=== PATIENT | female | born 1930 | race Caucasian/White ===

== ENCOUNTER 2016-12-14 08:41 | Inpatient (IN) | payer MEDICARE, OTHER ==
[2016-12-14 09:15] LABS: BASOPHILS 0.2 % (0.0-2.0); EOSINOPHILS 1.4 % (0.0-6.0); EOSINOPHILS# 0.1 X 10^3uL (0.0-0.4); HEMATOCRIT 43.8 % (36.0-48.0); HEMOGLOBIN 14.6 g/dL (12.0-16.0); LYMPHOCYTES 12.5 % (20.0-40.0); LYMPHOCYTES# 0.9 X 10^3uL (0.8-3.8); MEAN CELL VOLUME 91.9 fL (80.0-100.0); MEAN CORPUS. HGB CONCENTRATION 33.3 g/dL (32.0-36.0); MEAN CORPUSCULAR HEMOGLOBIN 30.6 pg (29.0-35.0); MEAN PLATELET VOLUME 8.8 fL (7.4-10.4); MONOCYTES 7.6 % (2.0-10.0); MONOCYTES# 0.5 X 10^3uL (0.2-1.0); NEUTROPHILS 78.3 % (54.0-75.0); NEUTROPHILS# 5.6 X 10^3uL (2.6-6.7); PLATELET COUNT 233 X 10^3uL (130-440); RED BLOOD COUNT 4.77 X 10^6uL (4.20-6.10); RED CELL DISTRIBUTION WIDTH 14.2 % (11.5-14.5); WHITE BLOOD COUNT 7.1 X 10^3uL (3.9-10.7)
[2016-12-14 09:24] LABS: A/G RATIO 1.5; ALBUMIN 4.2 g/dL (3.5-5.0); ALKALINE PHOSPHATASE 167 U/L (38-126); ALT 84 U/L (9-52); AST 59 U/L (14-36); BILIRUBIN, TOTAL 1.3 mg/dL (0.2-1.3); BLOOD UREA NITROGEN 20 mg/dL (7-17); CALCIUM 9.3 mg/dL (8.4-10.2); CHLORIDE 102 mmol/L (98-107); GLUCOSE 112 mg/dL (70-100); MAGNESIUM 2.2 mg/dL (1.6-2.3); POTASSIUM 4.1 mmol/L (3.5-5.1); SODIUM 143 mmol/L (137-145)
[2016-12-14 09:36] LABS: TROPONIN I < 0.012 ng/mL (0.00-0.034)
[2016-12-14] MEDS ORDERED: HOME MEDICATION LIST NEEDED 1 EA EACH MC ONE (10:31)
[2016-12-14] MEDS ORDERED: IPRATROPIUM/ALBUTEROL 0.5/3 MG 3 ML AMPUL.NEB IH PRN (10:31)
[2016-12-14] MEDS ORDERED: DILTIAZEM HCL 125 MG/25 ML VIAL IV ONE (10:35)
[2016-12-14] MEDS ORDERED: FUROSEMIDE 20 MG/2 ML VIAL ONE (10:36)
[2016-12-14] MEDS ORDERED: AZITHROMYCIN 250 MG TABLET PO ONE (10:36)
[2016-12-14] MEDS ORDERED: IPRATROPIUM/ALBUTEROL 0.5/3 MG 3 ML AMPUL.NEB INHALATION ONE (10:36)
[2016-12-14] MEDS ORDERED: cefTRIAXone SODIUM 1,000 MG/10 ML VIAL ONE (10:36)
[2016-12-14] MEDS ORDERED: NORMAL SALINE MINI-BAG+ 100 ML IV ONE (10:37)
[2016-12-14] MEDS ORDERED: NORMAL SALINE 1,000 ML IV ONE (10:41)
[2016-12-14] MEDS ORDERED: NORMAL SALINE MINI IV SCH (11:00)
[2016-12-14] MEDS ORDERED: CEFTRIAXONE SODIUM IV SCH (11:00)
--- NOTE | 2016-12-14 11:37 | ER NURSING DOCUMENTATION ---
Nurse's Notes [facility] Name:Jeana Taylor Age:86 yrs Sex:Female :1930 Arrival Date:12/14/2016 Time:08:41 Bed3 Private MD:No PCP, Identified Diagnosis:Pneumonia, Unspecified Presentation: 12/14 08:58 Presenting complaint: Patient states: SOB and confusion. Transition of care: Home. lp Notified ED Physician of Dr. Arriaga notified. 08:58 Acuity: MITALI 3 lp 08:58 Method Of Arrival: Private Vehicle lp 09:00 Acuity: MITALI 2 lp Triage Assessment: 09:05 General: Appears in no apparent distress, Behavior is appropriate for age. Pain: Denies lp pain. EENT: No deficits noted. Neuro: Level of Consciousness is awake, alert, confused, Oriented to person, place, event. Cardiovascular: Capillary refill < 3 seconds Heart tones S1 S2 Pulses are all present. Rhythm is atrial fibrillation. Respiratory: Airway is patent Trachea midline Respiratory effort is labored, Respiratory pattern is regular, symmetrical, Historical: - Allergies: Naproxen; PENICILLINS; Lortab; - Home Meds: 1. Pradaxa 75 mg oral cap 1 cap Daily for Prevention of Thromboembolism with Chronic Atrial Fibrillation 2. Cardizem 30 mg oral tab 1 tab 4 times per day 3. levothyroxine 112 mcg oral cap 1 cap once daily for Hypothyroidism 4. tesslon 5. hydrochlorothiazide 12.5 mg oral cap 1 cap once daily - PSHx: Hysterectomy; HERNIA REPAIR; Appendectomy; Knee surgery; - Tetanus: < 10 years. - Ebola Screening: : Patient negative for fever greater than or equal to 101.5 degrees Fahrenheit, and additional compatible Ebola Virus Disease symptoms. Patient denies exposure to infectious person. Patient denies travel to an Ebola-affected area in the 21 days before illness onset. . - Immunization history: Pneumococcal vaccine is up to date, Flu Vaccine < 1 year. - Social history: Smoking status: Patient states former smoker of tobacco. Screenin:09 Infectious Disease Risk None. Abuse screen: Denies threats or abuse. Denies injuries lp from another. Nutritional screening: No deficits noted. Assessment: 09:13 Cardiovascular: Capillary refill < 3 seconds Heart tones S1 S2 Rhythm is irregular. lp Respiratory: Breath sounds are clear in right upper lobe, left upper lobe, left posterior upper lobe and right posterior upper lobe Breath sounds are diminished in left lower lobe, right lower lobe, left posterior lower lobe and right posterior lower lobe. Vital Signs: 08:59 Pulse 115 MON; Resp 29; Pulse Ox 88% ; lp 09:00 BP 165 / 109; Pulse 125; Resp 20; Temp 98.0(TE); Pulse Ox 79% on R/A; Weight 55.34 kg; lp Height 5 ft. 0 in. (152.40 cm); Pain 0/10; 09:00 BP 139 / 110 (auto/); lp 09:19 BP 136 / 110 (auto/); lp 09:19 Pulse 119 MON; Resp 32; Pulse Ox 94% ; lp 09:30 BP 150 / 115 (auto/); lp 09:34 Pulse 105 MON; Resp 19; Pulse Ox 100% ; lp 09:59 Pulse 124 MON; Resp 24; lp 10:00 BP 142 / 102 (auto/); lp 10:29 Pulse 126 MON; Resp 23; Pulse Ox 94% ; lp 10:30 BP 154 / 104 (auto/); lp 10:54 Pulse 122 MON; Resp 38; Pulse Ox 92% ; lp 10:55 BP 129 / 87 (auto/); lp 09:00 Body Mass Index 23.83 (55.34 kg, 152.40 cm) lp ED Course: 08:45 Patient arrived in ED. ds 08:46 No PCP, Identified is Private Physician. ds 08:54 Larry Arriaga MD is Attending Physician. tl1 08:58 Karo Jaquez, FRANCISCO is Primary Nurse. lp 09:00 Triage completed. lp 09:07 EKG done. (by ED staff). la 09:[address] Arriaga notified. lp 09:09 Valuables Remains with patient Patient has correct armband on for positive lp identification. Placed in gown. Bed in low position. Call light in reach. Side rails up X 1. Cardiac Monitoring On for Nurse Monitoring only. Pulse Ox - RN Monitoring Only NIBP On - RN Monitoring Only. 09:10 Patient moved to radiology. pam 09:12 Inserted saline lock: 20 gauge in left antecubital area and blood collected. la 09:21 Patient moved back from radiology. pam 10:16 Bryan Garcia MD is Admitting Physician. tl1 10:19 EKG attached lp Administered Medications: 10:28 Drug: Lasix 20 mg; Route: IVP; Infused Over: 3 mins; Site: left antecubital; lp 10:46 Follow up: Response: No adverse reaction; No change in condition lp 10:30 Drug: Zithromax 500 mg; Route: PO; lp 10:46 Follow up: Response: No adverse reaction; No change in condition lp 10:35 Drug: Cardizem 10 mg; Route: IVP; Site: left antecubital; lp 10:45 Follow up: Response: No adverse reaction; Cardiac rhythm is unchanged lp 10:41 Drug: DuoNeb (Albuterol 2.5 mg, Atrovent 0.5 mg); 3 ml; Route: Nebulizer; lp 10:47 Follow up: Response: No adverse reaction; Wheezing diminished lp 10:41 Drug: cefTRIAXone 1 grams, NS 0.9% 100 ml; Route: IVPB; Infused Over: 30 mins; Site: lp left antecubital; 10:46 Follow up: IV Status: Infusion continued upon admission lp 10:43 Drug: NS 0.9% 1000 ml; Route: IV; Rate: 30 ml/hr; Site: left antecubital; lp 10:47 Follow up: Response: Medication administered at discharge.; IV Status: Infusion lp continued upon admission Output: 11:03 Urine: 200ml (Voided); Total: 200ml. lp Outcome: 10:18 Decision to Admit by Provider. tl1 11:36 Admitted to Med/surg accompanied by nurse. lp 11:36 Report given to Anant SINGH on Med- Surg 11:36 Instructed on discharge instructions, follow up and referral plans. need to admit 11:37 Condition: stable lp 11:37 Patient left the ED. lp Signatures: Karo Jaquez RN RN lp ot, Georgette, Reg Reg ds Sho, Autumn Stephenson, Larry Dickinson MD MD tl1
--- NOTE | 2016-12-14 11:37 | ER PHYSICIAN DOCUMENTATION ---
Physician Documentation [facility] Name:Jeana Taylor Age:86 yrs Sex:Female :1930 Arrival Date:12/14/2016 Time:08:41 Bed3 Private MD:No PCP, Identified ED Larry Casiano Disposition: 12/14 12:00 Chart complete. tl1 Disposition: 12/14/16 10:18 Admit ordered for Bryan Garcia. Preliminary diagnosis is Pneumonia, Unspecified. - Bed requested for Medical/Surgical. - Condition is Improved. - Problem is new. - Symptoms have improved. 23 HR OBS Yes HPI: 08:54 This 86 yrs old Female presents to ER with complaints of Cough. tl1 08:55 She was well until 2 days ago when she developed a mild cough that is now worse, and tl1 increasingly productive. She denies f/c/s. No chest pain or hemoptysis.. She has a h/o atrial fibrillation and is on pradaxa for that. She forgot her inhaler, which she takes for COPD, and her HCTZ. She had not checked her weight. Her chronic LE edema may be a little worse.. Historical: - Allergies: Naproxen; PENICILLINS; Lortab; - Home Meds: 1. Pradaxa 75 mg oral cap 1 cap Daily for Prevention of Thromboembolism with Chronic Atrial Fibrillation 2. Cardizem 30 mg oral tab 1 tab 4 times per day 3. levothyroxine 112 mcg oral cap 1 cap once daily for Hypothyroidism 4. tesslon 5. hydrochlorothiazide 12.5 mg oral cap 1 cap once daily - PSHx: Hysterectomy; HERNIA REPAIR; Appendectomy; Knee surgery; - Tetanus: < 10 years. - Ebola Screening: : Patient negative for fever greater than or equal to 101.5 degrees Fahrenheit, and additional compatible Ebola Virus Disease symptoms. Patient denies exposure to infectious person. Patient denies travel to an Ebola-affected area in the 21 days before illness onset. . - Immunization history: Pneumococcal vaccine is up to date, Flu Vaccine < 1 year. - Social history: Smoking status: Patient states former smoker of tobacco. ROS: 09:42 Respiratory: Positive for cough, dyspnea on exertion, shortness of breath, Negative for tl1 pleurisy, wheezing. 09:42 All other systems are negative. Exam: 09:43 Constitutional: This is a well developed, well nourished patient who is awake, alert, tl1 and in no acute distress. Head/Face: Normocephalic, atraumatic. Eyes: Pupils equal round and reactive to light, extra-ocular motions intact. Lids and lashes normal. Conjunctiva and sclera are non-icteric and not injected. Cornea within normal limits. Periorbital areas with no swelling, redness, or edema. ENT: Nares patent. No nasal discharge, no septal abnormalities noted. Tympanic membranes are normal and external auditory canals are clear. Oropharynx with no redness, swelling, or masses, exudates, or evidence of obstruction, uvula midline. Mucous membranes moist. Neck: Trachea midline, no thyromegaly or masses palpated, and no cervical lymphadenopathy. Supple, full range of motion without nuchal rigidity, or vertebral point tenderness. No Meningismus. 09:43 Cardiovascular: Regular rate and rhythm with a normal S1 and S2. No gallops, murmurs, tl1 or rubs. Normal PMI, no JVD. No pulse deficits. 09:43 Respiratory: the patient does not display signs of respiratory distress, Respirations: labored breathing, that is mild, hyperpnea, Breath sounds: rales, are not appreciated, rhonchi, are not appreciated, wheezing, is not appreciated, bronchial sounds, are not appreciated, decreased breath sounds, that are moderate. Vital Signs: 08:59 Pulse 115 MON; Resp 29; Pulse Ox 88% ; lp 09:00 BP 165 / 109; Pulse 125; Resp 20; Temp 98.0(TE); Pulse Ox 79% on R/A; Weight 55.34 kg; lp Height 5 ft. 0 in. (152.40 cm); Pain 0/10; 09:00 BP 139 / 110 (auto/); lp 09:19 BP 136 / 110 (auto/); lp 09:19 Pulse 119 MON; Resp 32; Pulse Ox 94% ; lp 09:30 BP 150 / 115 (auto/); lp 09:34 Pulse 105 MON; Resp 19; Pulse Ox 100% ; lp 09:59 Pulse 124 MON; Resp 24; lp 10:00 BP 142 / 102 (auto/); lp 10:29 Pulse 126 MON; Resp 23; Pulse Ox 94% ; lp 10:30 BP 154 / 104 (auto/); lp 10:54 Pulse 122 MON; Resp 38; Pulse Ox 92% ; lp 10:55 BP 129 / 87 (auto/); lp 09:00 Body Mass Index 23.83 (55.34 kg, 152.40 cm) lp MDM: 08:54 Patient medically screened. tl1 09:44 Differential Diagnosis: Bronchitis Influenza Upper Respiratory Infection Viral Syndrome tl1 Pneumonia Other CHF. Doubt PE since she is anticoagulated. Atrial fibrillation is probably making this worse. Data reviewed: vital signs, nurses notes, lab test result(s), CBC, electrolytes, hepatic panel, EKG, radiologic studies, plain films, and as a result, I will admit patient. Counseling: I had a detailed discussion with the patient and/or guardian regarding: the historical points, exam findings, and any diagnostic results supporting the discharge/admit diagnosis, lab results, radiology results, the need for further work-up and treatment in the hospital. 09:48 ECG:. tl1 10:00 Physician consultation: Bryan Garcia MD was called at 10:00, was contacted at 10:00, tl1 regarding admission, to the floor, patient's condition, and will see patient later today. Admission orders: after a detailed discussion of the patient's condition and case, the admit orders are written by me. ED course: O2 was provided immediately. There was a mild decrease in her heart rate with diltiazem 10 mg IVP TO around 100. She was given ceftriaxone and azithromycin, along with a duoneb and 20 mg of IV lasix. She was feeling somewhat better.. 10:19 EKG attached lp 12/14 09:20 Order name: CBC AUTO DIF, MDIF/RMOR IF IND; Complete Time: 09:53 EDMS 12/14 09:52 Interpretation: WHITE BLOOD COUNT 7.1; HEMOGLOBIN 14.6; HEMATOCRIT 43.8; PLATELET COUNT tl1 233; NEUTROPHILS 78.3. 12/14 09:37 Order name: COMPREHENSIVE METABOLIC PANEL; Complete Time: 09:53 EDMS 12/14 09:52 Interpretation: SODIUM 143; POTASSIUM 4.1; CARBON DIOXIDE 25; GLUCOSE 112; BLOOD UREA tl1 NITROGEN 20; CREATININE 0.8; ALT 84; AST 59. 12/14 09:37 Order name: MAGNESIUM; Complete Time: 09:53 EDMS 06/07 09:52 Interpretation: Normal: MAGNESIUM 2.2. tl1 12/14 09:37 Order name: BNP,NT-PRO; Complete Time: 09:53 EDMS 12/14 09:52 Interpretation: Abnormal: BNP,NT-PRO 3480. tl1 12/14 09:37 Order name: TROPONIN I; Complete Time: 09:53 EDMS 07 09:53 Interpretation: Normal: TROPONIN I < 0.012. tl1 12/15 06:06 Order name: BASIC METABOLIC PANEL EDMS 12/15 06:07 Order name: CBC AUTO DIF, MDIF/RMOR IF IND EDMS 12/15 09:11 Order name: HEPATIC PANEL EDMS 12/15 09:11 Order name: THYROID STIMULATING HORMONE EDMS 12/14 12:42 Order name: CXR 2V 16965; Complete Time: 13:57 EDMS 12/14 13:56 Interpretation: Bibasilar infiltrates with bilateral pleural effusion and some tl1 increased pulmonary vascularity. 12/14 09:00 Order name: EKG - 12 Lead; Complete Time: 09:12 tl1 EC: Rate is 148 beats/min. Rhythm is irregularly irregular, A fib. QRS Leopold is Normal. QRS tl1 interval is normal at 70 msec. QT interval is normal at 348 msec. Q waves are Present in leads V1, V2, V3. T waves are Normal. No ST changes noted. Clinical impression: Atrial Fibrillation and with RVR and an old AWMI. Interpreted by me. Reviewed by me. Dispensed Medications: 10:28 Drug: Lasix 20 mg; Route: IVP; Infused Over: 3 mins; Site: left antecubital; lp 10:46 Follow up: Response: No adverse reaction; No change in condition lp 10:30 Drug: Zithromax 500 mg; Route: PO; lp 10:46 Follow up: Response: No adverse reaction; No change in condition lp 10:35 Drug: Cardizem 10 mg; Route: IVP; Site: left antecubital; lp 10:45 Follow up: Response: No adverse reaction; Cardiac rhythm is unchanged lp 10:41 Drug: DuoNeb (Albuterol 2.5 mg, Atrovent 0.5 mg); 3 ml; Route: Nebulizer; lp 10:47 Follow up: Response: No adverse reaction; Wheezing diminished lp 10:41 Drug: cefTRIAXone 1 grams, NS 0.9% 100 ml; Route: IVPB; Infused Over: 30 mins; Site: lp left antecubital; 10:46 Follow up: IV Status: Infusion continued upon admission lp 10:43 Drug: NS 0.9% 1000 ml; Route: IV; Rate: 30 ml/hr; Site: left antecubital; lp 10:47 Follow up: Response: Medication administered at discharge.; IV Status: Infusion lp continued upon admission Signatures: Karo Jaquez RN RN Larry Arriaga MD MD tl1
--- NOTE | 2016-12-14 12:26 | RADIOLOGY REPORT ---
Two views of the chest, without prior films for comparison, demonstrate the cardiac silhouette to be enlarged. The central pulmonary vasculature is indistinct. A moderate amount of bilateral pleural fluid is noted. Bibasilar infiltrates are seen. The mid and upper lung arguelles are clear. IMPRESSION: 1. Findings consistent with a degree of congestive failure. 2. Bibasilar infiltrates. The findings were personally reviewed with Dr. Arriaga at 1000 hours on 12/14/2016. [facility]
[2016-12-14] MEDS ORDERED: DILTIAZEM HCL 30 MG TABLET PO ONE (12:36)
[2016-12-14] MEDS ORDERED: DILTIAZEM HCL 30 MG TABLET PO SCH (13:00)
[2016-12-14] MEDS: DILTIAZEM HCL CD 120 MG CAPSULE PO SCH (15:18)
[2016-12-14] MEDS ORDERED: SODIUM CHLORIDE IRRIG IRRIGATION ONE (16:17)
[2016-12-14] MEDS ORDERED: traMADol HCL 50 MG TABLET PO PRN (17:00)
[2016-12-14] MEDS ORDERED: IPRATROPIUM BROMIDE 0.5 MG/2.5 ML NEB INHALATION PRN (18:58)
[2016-12-14] MEDS: DABIGATRAN 75 MG CAPSULE PO SCH (21:08)
[2016-12-14] MEDS: BUDESONIDE 0.5 MG/2 ML NEB INHALATION SCH (21:09)
[2016-12-14] MEDS: BENZONATATE 100 MG CAPSULE PO SCH (21:10)
[2016-12-15 05:59] LABS: BASOPHILS 0.6 % (0.0-2.0); EOSINOPHILS 5.4 % (0.0-6.0); EOSINOPHILS# 0.3 X 10^3uL (0.0-0.4); HEMOGLOBIN 12.7 g/dL (12.0-16.0); LYMPHOCYTES 21.9 % (20.0-40.0); LYMPHOCYTES# 1.2 X 10^3uL (0.8-3.8); MEAN CELL VOLUME 91.7 fL (80.0-100.0); MEAN CORPUS. HGB CONCENTRATION 32.4 g/dL (32.0-36.0); MEAN CORPUSCULAR HEMOGLOBIN 29.7 pg (29.0-35.0); MEAN PLATELET VOLUME 8.4 fL (7.4-10.4); MONOCYTES 9.6 % (2.0-10.0); MONOCYTES# 0.5 X 10^3uL (0.2-1.0); NEUTROPHILS 62.5 % (54.0-75.0); NEUTROPHILS# 3.3 X 10^3uL (2.6-6.7); PLATELET COUNT 206 X 10^3uL (130-440); RED BLOOD COUNT 4.26 X 10^6uL (4.20-6.10); RED CELL DISTRIBUTION WIDTH 14.3 % (11.5-14.5); WHITE BLOOD COUNT 5.4 X 10^3uL (3.9-10.7)
[2016-12-15] MEDS ORDERED: FUROSEMIDE 20 MG/2 ML VIAL IV SCH (06:00)
[2016-12-15 06:05] LABS: BLOOD UREA NITROGEN 21 mg/dL (7-17); CALCIUM 8.8 mg/dL (8.4-10.2); CHLORIDE 106 mmol/L (98-107); GLUCOSE 101 mg/dL (70-100); POTASSIUM 3.7 mmol/L (3.5-5.1); SODIUM 140 mmol/L (137-145)
[2016-12-15] MEDS ORDERED: LEVOTHYROXINE 112 MCG TABLET PO SCH (06:30)
[2016-12-15] MEDS: DABIGATRAN 75 MG CAPSULE PO SCH (08:02)
[2016-12-15] MEDS: DILTIAZEM HCL CD 120 MG CAPSULE PO SCH (08:02)
[2016-12-15] MEDS: BENZONATATE 100 MG CAPSULE PO SCH (08:04)
--- NOTE | 2016-12-15 08:16 | HISTORY & PHYSICAL ---
DATE OF ADMISSION: 12/14/16 ATTENDING PHYSICIAN: Bryan Garcia MD HISTORY OF PRESENT ILLNESS: This 86-year-old woman from [place] is visiting [place] on vacation. Two days ago around the time of arrival, she developed a mild cough that has progressed and was accompanied with shortness of breath. She denies any fever, chills, sore throat, nasal congestion or chest pain. She does have a history of paroxysmal atrial fibrillation but has not had any previous heart failure. She is anticoagulated with Pradaxa. She has had chronic obstructive pulmonary disease diagnosed in the past from distant cigarette use, and uses a steroid inhaler for this. She does not get frequent exacerbation for this, however. This morning her symptoms became bad enough to prompt a visit to the [facility] Emergency Department where she was found to be significantly hypoxic with a room air saturation of 78%. Her chest x-ray showed some bibasilar infiltrates consistent either with congestive heart failure or pneumonia. She was admitted for observation. PAST MEDICAL HISTORY 1. Chronic obstructive pulmonary disease. 2. Paroxysmal atrial fibrillation. 3. Hypothyroidism. ALLERGIES: Penicillin, Hydrocodone, Naproxen. MEDICATIONS Pradaxa 75 mg daily. Cardizem regular release 30 mg t.i.d. Levothyroxine 112 mcg daily. Tessalon Perles 100 mg Hydrochlorothiazide 12.5 mg once daily. REVIEW OF SYSTEMS GENERAL: No chills or fever. RESPIRATORY: Some shortness of breath, productive cough and no wheezing. CARDIOVASCULAR: No chest pain or palpitations. GI: No nausea, vomiting or diarrhea. No abdominal pain. MUSCULOSKELETAL/EXTREMITIES: No pedal edema or significant myalgias. SOCIAL HISTORY: Patient lives in [place] and is traveling here with her family. She plans on leaving for [place] in 2 days. PHYSICAL EXAMINATION VITAL SIGNS: Temperature 37.2, blood pressure 134/98, pulse 120 (irregular), respiratory rate 22, O2 saturation 93% on 2 liters and 78% on room air. HEENT: Sinuses were nontender. Throat without erythema. Oral mucosa moist. LUNGS: Diminished breath sounds in the bases but was otherwise clear. HEART: Irregular irregular tachycardic rhythm and no murmur. ABDOMEN: Nontender, soft and without hepatosplenomegaly or masses. EXTREMITIES: Without edema. NEURO/MUSCULOSKELETAL EXAM: Significant for frequent bouts of hypertonicity generalized and some intermittent tremor particularly in the hands. LABORATORY DATA: White count 7,100 with 78% neutrophils and 12% lymphs. Hemoglobin was 14.6 and hematocrit 44. Platelets were 233,000. Sodium 143, potassium 4.1, chloride 102, CO2 25 and creatinine 0.8. Her random glucose was 112. LFTs had a total bilirubin of 1.3, AST 59, ALT 84, alkaline phosphatase 167. Her troponin was less than 0.012 and her NT-pro-BNP was elevated 3480 with a normal range being less than 450. IMAGING: Her chest x-ray showed some bibasilar infiltrates consistent either with congestive heart failure or pneumonia. She had moderate bilateral pleural effusions. IMPRESSION 1. Hypoxia related to either congestive heart failure or pneumonia. More likely congestive heart failure. This likely has been triggered by the high altitude, her atrial fibrillation, and advancing age. She has been to this elevation before without problems, but in the interim has developed the atrial fibrillation. 2. Bilateral pleural effusions likely due to congestive heart failure. 3. Atrial fibrillation with rapid rate inadequately controlled on Diltiazem 30 mg t.i.d. 4. Hypothyroidism. TSH pending. Treated. PLAN: The patient was given 20 mg of IV Lasix in the Emergency Department and improved some with that. However, will repeat that dose tomorrow in the morning. I have switched her to long active Cardizem CD 120 mg daily and this has brought her rate down to 90. Hopefully it will remain in that range. We are covering with Rocephin and Azithromycin on the chance that she has some pneumonia. Although, I think the congestive heart failure is a more likely culprit. Hopefully we can get her to the point that she can leave town on schedule to return to [place]. I think going to a lower elevation will solve her problems. DUONGD
[2016-12-15 08:35] LABS: ALBUMIN 3.1 g/dL (3.5-5.0); ALKALINE PHOSPHATASE 114 U/L (38-126); ALT 66 U/L (9-52); AST 36 U/L (14-36); BILIRUBIN, DIRECT 0.2 mg/dL (0.0-0.4); BILIRUBIN, TOTAL 0.9 mg/dL (0.2-1.3); TOTAL PROTEIN 5.6 g/dL (6.3-8.2)
[2016-12-15] MEDS ORDERED: AZITHROMYCIN 250 MG TABLET PO SCH (09:00)
[2016-12-15] MEDS ORDERED: DILTIAZEM HCL CD 120 MG CAPSULE PO SCH (09:00)
[2016-12-15] MEDS ORDERED: POTASSIUM CHLORIDE ER 10 MEQ TABLET PO SCH (09:00)
[2016-12-15] MEDS ORDERED: HYDROCHLOROTHIAZIDE 25 MG TABLET PO SCH (09:00)
[2016-12-15] MEDS ORDERED: DILTIAZEM HCL 30 MG TABLET PO SCH ×2 (09:02→14:00)
[2016-12-15 09:05] LABS: THYROID STIMULATING HORMONE 1.41 uIU/mL (0.47-4.68)
[2016-12-15] MEDS: BUDESONIDE 0.5 MG/2 ML NEB INHALATION SCH (09:18)
[2016-12-15 10:20] VITALS: RESP 20
[2016-12-15 11:14] VITALS: BP 124/88; PULSE 88; TEMP 98.7; O2SAT 88
--- NOTE | 2016-12-15 13:09 | DC SUMMARY: IM Note ---
Discharge Summary: IM/Peds Provider: Date of Admission: 12/14/16 Admitting Provider: SAMSON ANDERSON MD Attending Provider: SAMSON ANDERSON MD Discharging Provider: SAMSON ANDERSON MD Primary Care Provider: Discharge Date: 12/15/16 - Diagnosis (1) CHF (congestive heart failure) Status: Acute (2) Cor pulmonale, acute Status: Chronic (3) Hypoxia Status: Acute (4) Elevated LFTs Status: Acute (5) Pleural effusion due to another disorder Status: Acute (6) COPD (chronic obstructive pulmonary disease) Status: Chronic Qualifiers: COPD type: COPD with acute exacerbation Qualified Code(s): J44.1 - Chronic obstructive pulmonary disease with (acute) exacerbation (7) Paroxysmal atrial fibrillation with rapid ventricular response Status: Acute Hospital Course: This 86-year-old woman with known COPD and chronic pedal edema developed shortness of breath and some cough without fever or chills when she came to [facility] and stayed at 9000 feet elevation. She was admitted to [facility] on 12/14/16 and responded nicely to diuresis. Her initial room air pulse oximetry was 78% and improved to 91% by the following morning. She only required 20 mg of IV Lasix daily. Initially there was some question about whether she might have some pneumonia, but I am convinced that this was all related to her chronic COPD and atrial fib exacerbated by altitude triggering acute cor pulmonale with bilateral pleural effusions and transiently elevated LFTs. That is all significantly improved today, although she still has a small pleural effusion on the left by exam. Her heart rate remained elevated initially due to her atrial fibrillation, despite her usual 30 mg of diltiazem 3 times daily. I tried 120 mg of sustained release diltiazem and that helped but did not get her to goal. I supplemented that with 15 mg 3 times daily, but will discharge her on 180 mg daily. She is anxious to be discharged and to [place] see [place] before flying back to [place] tomorrow. I will go ahead and discharge her this afternoon with some supplemental oxygen available if needed during the day and to use continuously at 1 L/min through the night. I made the following medication changes: Switching from regular release diltiazem 30 mg 3 times daily to diltiazem CD 180 mg daily,and switching from HCTZ 12.5 mg daily to furosemide 20 mg daily (with the addition of 10 mEq of potassium daily). The patient forgot to bring her Anoro Elipta inhaler, so I gave her Pulmicort during the admission. She had no wheezing at any point, though. She should resume her usual inhalers as soon as she returns home. - Time Spent with Patient Total time spent providing and/or coordinating discharge services: Discharge - Patient/Caregiver Discharge Instructions Activity Level: minimal exertion at this altitude Diet: low salt; avoid excessive fluids. Additional Instructions: Oxygen at 1 l/m through the night and as needed during the day at this altitude. No need for O2 in [place] or on the plane. See your usual doctor next week. Take 1/2 of a 30-mg diltiazem pill at bedtime tonight only. Tomorrow morning start the 180 mg slow release diltiazem every morning and stop the 30 mg pills. Home Medications: Furosemide [Lasix*] 20 mg PO DAILY #30 Potassium Chloride ER [Micro-K 10 Meq*] 10 meq PO DAILY #30 Orders: Home Oxygen Location: Determined By Patient Disposition: HOME, SELF-CARE Discharge Summary Data - Medication History Medication History: Home Medications Betamethasone Valerate 1 pasha TOPICAL BID #0 12/15/16 Diltiazem HCl Cd [Cardizem Cd*] 180 mg PO DAILY 12/15/16 Furosemide [Lasix*] 20 mg PO DAILY #30 12/15/16 Potassium Chloride ER [Micro-K 10 Meq*] 10 meq PO DAILY #30 12/15/16 Inpatient Medications 12/15/16 09:00 Diltiazem HCl Cd [Cardizem Cd] 180 mg PO DAILY Potassium Chloride ER [Micro-K] 10 meq PO DAILY 12/15/16 14:00 Diltiazem HCl [Cardizem] 15 mg PO ONCE@1400 Procedures and tests throughout hospitalization: Completed Lab Orders 12/15/16 05:22 BMP [BASIC METABOLIC PANEL] [CHEM] AMDRAW CBC AUTO DIF, MDIF/RMOR IF IND [HEM] AMDRAW HEPATIC PANEL [CHEM] Routine THYROID STIMULATING HORMONE [CHEM] Routine Pending Orders 12/15/16 09:00 Diltiazem HCl Cd [Cardizem Cd] 180 mg PO DAILY Potassium Chloride ER [Micro-K] 10 meq PO DAILY 12/15/16 12:48 Remove Peripheral IV ONCE 12/15/16 14:00 Diltiazem HCl [Cardizem] 15 mg PO ONCE@1400 12/15/16 14:15 Discharge ONCE Labs on day of discharge: Labs from last 24 hours 12/15/16 05:22 WBC 5.4 RBC 4.26 Hgb 12.7 Hct 39.0 MCV 91.7 MCH 29.7 MCHC 32.4 RDW 14.3 Plt Count 206 MPV 8.4 Neutrophils % 62.5 Lymphocytes % 21.9 Eosinophils % 5.4 Basophils % 0.6 Neutrophils # 3.3 Lymphocytes # 1.2 Monocytes 9.6 Monocytes # 0.5 Eosinophils # 0.3 Basophils # 0.0 Sodium 140 Potassium 3.7 Chloride 106 Carbon Dioxide 24 BUN 21 H Creatinine 0.8 GFR Calculation Not Reportable Glucose 101 H Calcium 8.8 Total Bilirubin 0.9 Direct Bilirubin 0.2 AST 36 ALT 66 H Alkaline Phosphatase 114 Total Protein 5.6 L Albumin 3.1 L D TSH 1.41 IM: Discharge Physical Exam - I&O/Vital Signs I&O: Intake & Output 12/14/16 12/15/16 12/15/16 21:59 05:59 13:59 Intake Total 490 225 Output Total 1700 240 Balance -0 -15 Weight 59 kg Intake: Oral 490 225 Output: Urine 1700 240 Other: Urine Appearance Clear Clear Clear Urine Color Pale Yellow Yellow Voiding Method Toilet Toilet Toilet Vital Signs: Last Vital Signs Temp 37.1 C 12/15/16 11:00 Pulse 88 12/15/16 11:00 Resp 20 12/15/16 11:00 BP 124/88 12/15/16 11:00 Pulse Ox 88 L 12/15/16 11:00 Oxygen Flow Rate 1 Oxygen Delivery Method Room Air - Constitutional General appearance: Present: average body habitus - ENT ENT exam: Present: mucous membranes moist - Respiratory Respiratory exam: Present: decreased breath sounds (in both bases), clear - Cardiovascular Cardiovascular exam: Present: irregular rhythm. Absent: systolic murmur - Neurological Exam Neurological exam: Present: oriented X3 - Psychiatric Psychiatric exam: Present: normal mood - Skin Skin exam: Absent: rash - Allied Health Notes Allied health notes reviewed: nursing
== END 2016-12-15 14:15 | disposition home or self-care (01) | DRG 292 ==
LOC: ER 08:41 → IN 11:21
PROVIDERS: ADMIT Family Medicine; ATTEND Family Medicine
DX: I50.9 Heart failure, unspecified (principal); J44.1 Chronic obstructive pulmonary disease with (acute) exacerbation; I48.2 Chronic atrial fibrillation; E03.9 Hypothyroidism, unspecified; I27.81 Cor pulmonale (chronic); Z79.899 Other long term (current) drug therapy
CPT/HCPCS: 36415; 71020; 80048; 80053; 80076; 83735; 83880; 84443; 84484; 85025; 93005; 93041; 94640; 96374; 96375; 99284; 99285; J0696; J1940; J7030; J7620; Q0144